=== PATIENT | male | born 1985 | race Two or more races ===

== ENCOUNTER 2023-11-27 16:59 | Emergency (ER) | payer MEDICAID, OTHER ==
[~2023-11-27] VITALS: Ht 167.6 cm; Wt 84.3 kg
[2023-11-27 17:34] LABS: Urine Bacteria None Seen /hpf (None Seen)
[2023-11-27 17:46] LABS: Urine Blood 3+ /uL (Negative); Urine Clarity Clear (Clear); Urine Color Yellow (Yellow); Urine Protein, UAD TRACE (Negative); Urine Specific Gravity 1.021 (1.001-1.035); Urine Urobilinogen Normal (Negative); Urine WBC 1 /hpf (0 - 3)
[2023-11-27] MEDS: MORPHINE SULFATE 4 MG/ML SYR/VIAL IV ONE (18:43)
[2023-11-27] MEDS: ONDANSETRON HCL 4 MG/2 ML VIAL IV ONE (18:44)
[2023-11-27] MEDS: SODIUM CHLORIDE 0.9% 1,000 ML IV ONE (18:44)
[2023-11-27 18:48] LABS: Basophils # (auto) 0 10 ^3/uL (0-0.2); Basophils % (auto) 0.1 % (0.0-2.0); Eosinophils # (auto) 0 10 ^3/uL (0-0.8); Hemoglobin 16.9 g/dL (13.5-17.5); Lymphocytes % (auto) 10.5 % (10.0-50.0); Mean Corpuscular Hemoglobin 29.2 pg (28.0-32.0); Mean Corpuscular Hgb Conc. 33.8 g/dL (32.0-36.0); Mean Corpuscular Volume 86.5 fL (80.0-100.0); Monocytes # (auto) 0.3 10 ^3/uL (0-1.3); Monocytes % (auto) 2.8 % (0.0-12.0); Neutrophils % (auto) 86.6 % (37.0-80.0); Red Blood Cells 5.78 10^6/uL (4.5-5.90); Red Cell Distribution Width 12.6 % (11.8-14.3); White Blood Cell 9.3 10^3/uL (4.4-10.8)
[2023-11-27 18:49] VITALS: PULSE 85; RESP 16; O2SAT 98
[2023-11-27 18:54] LABS: Alanine Aminotransferase 155 U/L (7-40); Alkaline Phosphatase 78 U/L (46-116); Anion Gap 5 (5-15); Aspartate Aminotransferase 44 U/L (13-40); BUN/Creatinine Ratio 6.7 (10.0-20.0); Blood Urea Nitrogen 7 mg/dL (9-23); Calcium 10.4 mg/dL (8.7-10.4); Carbon Dioxide 26 mmol/L (20-30); Chloride 108 mmol/L (98-107); Glucose 107 mg/dL (74-106); Potassium 4.4 mmol/L (3.5-5.1); Sodium 139 mmol/L (136-145)
[2023-11-27 18:55] LABS: Total Protein 7.7 g/dL (5.7-8.2)
[2023-11-27] MEDS ORDERED: OXY5T GT (19:06)
[2023-11-27] MEDS ORDERED: TAMS-35 PO (19:06)
[2023-11-27] MEDS: TAMSULOSIN HYDROCHLORIDE 0.4 MG CAP PO ONE (19:12)
[2023-11-27 19:56] VITALS: BP 136/81; PULSE 73; RESP 20; TEMP 98; O2SAT 97
== END 2023-11-27 20:13 | disposition home or self-care (01) ==
LOC: ER 16:59
DX: N23 Unspecified renal colic (principal); Z88.6 Allergy status to analgesic agent
CPT/HCPCS: 36415; 74176; 80053; 81001; 85025; 96361; 96374; 96375; 99285; J2270; J2405; J7030